=== PATIENT | female | born 1985 | race Caucasian/White ===

== ENCOUNTER 2016-09-28 19:53 | Emergency (ER) | payer BC ==
[~2016-09-28] VITALS: Ht 162.6 cm; Wt 83.4 kg
[2016-09-28 19:59] VITALS: BP 131/82; PULSE 102; RESP 20; TEMP 98.2; O2SAT 100
[2016-09-28 20:33] VITALS: BP 135/70; PULSE 108; RESP 20; O2SAT 100
[2016-09-28] MEDS ORDERED: TYLE325T PO (20:37)
[2016-09-28] MEDS ORDERED: PREN29TA PO (20:37)
[2016-09-28] MEDS ORDERED: SODIUM CHLOR 0.9% 1000 ML INJ 1,000 ML IV ONE (20:45)
--- NOTE | 2016-09-28 20:45 | PD ---
HPI Chief Complaint: Product Marketing Analyst Problem/Complaint Time Seen by Provider: 20:37 Travel History International Travel<30 days: No Contact w/Intl Traveler<30days: No Traveled to known affect area: No History of Present Illness HPI 31-year-old female presents to the emergency department by private transportation for complaint of right lower quadrant abdominal pain. Pain onset at 1 PM for approximately one hour and then resolved spontaneously. Patient took acetaminophen without relief. Patient with recurrent pain while sitting eating dinner around 7 PM. Pain was 8/10 in intensity but has not dissipated down to possibly 3/10 in intensity. Patient is 24 weeks . Patient is 3 para 2 AB 0. Previous pregnancies patient does not recall having any similar pain and were vaginal deliveries. Last menstrual period was 04/13/16 with EDC of 01/18/17. Patient is unable to identify exacerbating or alleviating factors. Patient denies any vaginal discharge or vaginal bleeding. Last ultrasound by her [facility] in [place] was 4 weeks ago and at that time she was 20 weeks with a normal ultrasound. Patient does take as needed acetaminophen and vitamins. Patient's taking no other medications. Patient denies fever chills respiratory illness symptoms has had some nausea without vomiting denies anorexia has had one episode of diarrhea no dysuria frequency urgency flank pain or hematuria. Patient's had no vaginal discharge or vaginal bleeding. Patient states symptoms began around 1 PM when she started to go for walk but because of the discomfort had to lay down and the pain dissipated on its own over time. Patient did not contact her managing physician in [place]. Due to recurrence of discomfort decided to come to the emergency room for evaluation. No prior history of abdominal surgery or similar abdominal complaint. No other family members with nausea or diarrhea. No report of melena or hematochezia. Patient traveled here by car yesterday from [place]. Patient reports she is attempting to stay well-hydrated. Patient does have cramps associated reportedly with dehydration. Patient reports she is seeing a chiropractor for left-sided broad ligament pain and that this pain is different. PFSH Past Medical History Narrative Medical Reportedly negative past medical history; Ab0: Breast augmentation; no tobacco use; nursing notes reviewed Tetanus Vaccination: Unknown Influenza Vaccination: No ?: LMP: APR 13 2016 : 3 Para: 2 Past Surgical History Other Surgery: Yes (BILATERAL BREAST AUGMENTATION) Social History Alcohol Use: No Tobacco Use: No Substance Use: No Allergies-Medications (Allergen,Severity, Reaction): Coded Allergies: Wellbutrin (Verified Allergy, Unknown, Tachycardia, 09/28/16) Reported Meds & Prescriptions Reported Meds & Active Scripts Active Reported Tylenol (Acetaminophen) 325 Mg Tab 650 Mg PO Q4H PRN Plus Iron 29-1 mg ( Vit-Iron Carbonyl) 1 Tab Tab 1 Tab PO DAILY Review of Systems Except as stated in HPI: all other systems reviewed are Neg General / Constitutional: No: Fever, Chills HENT: No: Congestion Respiratory: No: Shortness of Breath Gastrointestinal: Positive: Nausea, Diarrhea (x1), Abdominal Pain ( intermittent sharp RLQ), No: Vomiting, Hematochezia, Loss of Appetite Genitourinary: No: Urgency, Frequency, Dysuria, Hematuria, Pelvic Pain, Flank Pain, Discharge, Vaginal Bleeding Musculoskeletal: No: Myalgias, Arthralgias Skin: No Rash Neurologic: No: Weakness Psychiatric: No: Anxiety Hematologic/Lymphatic: No: Lymph Node Enlargement Physical Exam Narrative GENERAL: Well-developed well-nourished female in no acute distress no respiratory distress SKIN: Warm and dry. HEAD: Normocephalic. EYES: No scleral icterus. No injection or drainage. NECK: Supple, trachea midline. No JVD or lymphadenopathy. CARDIOVASCULAR: Regular rate and rhythm without murmurs, gallops, or rubs. RESPIRATORY: Breath sounds equal bilaterally. No accessory muscle use. GASTROINTESTINAL: Abdomen soft, non-tender to direct palpation to all quadrants , nondistended. No guarding and no rebound. Fundal height 2 finger breaths below the umbilicus. Pelvic exam: External exam no redness no induration no ulcerations; bimanual exam cervical os closed cervix long and thin. No tenderness to palpation. Scant clear mucus on exam glove no blood. Speculum exam deferred. MUSCULOSKELETAL: No cyanosis, or edema. BACK: Nontender without obvious deformity. No CVA tenderness. Data Data Last Documented VS Vital Signs Date Time Temp Pulse Resp B/P Pulse Ox O2 Delivery O2 Flow Rate FiO2 09/28/16 22:12 98 132/78 99 09/28/16 20:34 20 09/28/16 19:59 98.2 Orders Complete Blood Count With Diff (09/28/16 20:37) Basic Metabolic Panel (Bmp) (09/28/16 20:37) Urinalysis - C+S If Indicated (09/28/16 20:37) Sodium Chlor 0.9% 1000 Ml Inj (Ns 1000 M (09/28/16 20:45) Labs Laboratory Tests Test 09/28/16 09/28/16 20:42 20:45 Urine Color YELLOW Urine Turbidity CLEAR Urine pH 6.0 Urine Specific Witt 1.021 Urine Protein NEG mg/dL Urine Glucose (UA) NEG mg/dL Urine Ketones TRACE mg/dL Urine Occult Blood NEG Urine Nitrite NEG Urine Bilirubin NEG Urine Leukocyte Esterase NEG Urine RBC 0-3 /hpf Urine Squamous Epithelial 0-5 /hpf Cells Urine Amorphous Sediment FEW Urine Mucus OCC /lpf Microscopic Urinalysis Comment CULT NOT INDICATED White Blood Count 10.6 TH/MM3 Red Blood Count 3.87 MIL/MM3 Hemoglobin 11.5 GM/DL Hematocrit 34.5 % Mean Corpuscular Volume 89.0 FL Mean Corpuscular Hemoglobin 29.7 PG Mean Corpuscular Hemoglobin 33.4 % Concent Red Cell Distribution Width 13.7 % Platelet Count 223 TH/MM3 Mean Platelet Volume 7.6 FL Neutrophils (%) (Auto) 73.2 % Lymphocytes (%) (Auto) 20.8 % Monocytes (%) (Auto) 5.2 % Eosinophils (%) (Auto) 0.6 % Basophils (%) (Auto) 0.2 % Neutrophils # (Auto) 7.8 TH/MM3 Lymphocytes # (Auto) 2.2 TH/MM3 Monocytes # (Auto) 0.5 TH/MM3 Eosinophils # (Auto) 0.1 TH/MM3 Basophils # (Auto) 0.0 TH/MM3 CBC Comment DIFF FINAL Differential Comment Sodium Level 139 MEQ/L Potassium Level 3.4 MEQ/L Chloride Level 104 MEQ/L Carbon Dioxide Level 25.2 MEQ/L Anion Gap 10 MEQ/L Blood Urea Nitrogen 7 MG/DL Creatinine 0.62 MG/DL Estimat Glomerular Filtration 112 ML/MIN Rate Random Glucose 122 MG/DL Calcium Level 9.1 MG/DL MDM Medical Decision Making Medical Screen Exam Complete: Yes Emergency Medical Condition: Yes Medical Record Reviewed: Yes Interpretation(s) Vital Signs Date Time Temp Pulse Resp B/P Pulse Ox O2 Delivery O2 Flow Rate FiO2 09/28/16 20:34 20 09/28/16 20:33 108 20 135/70 100 09/28/16 19:59 98.2 102 20 131/82 100 CBC & BMP Diagram 09/28/16 20:45 Differential Diagnosis Abdominal pain, probably ligament pain, round ligament pain, appendicitis, UTI, premature labor, musculoskeletal strain, renal colic Narrative Course IV access obtained; bedside ultrasound performed by me with curvilinear probe transverse and longitudinal views show intrauterine with good heart activity approximately 140-146 bpm. Urine specimen collected; heart tones 156 by nursing. @ 9:27 PM patient pain 0/10; laughing with spouse denies any complaints at this time; aware labs w/i normal range, except minimal hypokalemia, 3.4; Patient, with spouse at bedside, is aware that she still needs monitoring which we cannot do at this facility. Patient is aware that it is recommended that she be seen at the [facility] OB ED and seen by the environmental compliance technician OB. Patient is aware her presentation has been discussed with Dr Ramos OB ED MD who agrees to see the patient for monitoring and that she can be sent by EMS transport. Patient unwilling to go to [facility] by EMS but reports aware of need for further evaluation and will go by private vehicle. Physician Communication Physician Communication discussed with Dr Ramos --send for monitoring Diagnosis Primary Impression: Abdominal pain during Qualified Code: O26.892 - Abdominal pain during , second trimester Referrals: Bargain Table Clerk 1 day Patient Instructions: General Instructions Additional Instructions: Follow up with OB Rest return to the ED for any concerns or change in condition Patricia Carlson MD Sep 28, 2016 20:45
[2016-09-28 20:48] LABS: BLOOD, URINE NEG (NEG); GLUCOSE,URINE NEG (NEG); KETONE, URINE TRACE mg/dL (NEG); NITRITE,URINE NEG (NEG)
[2016-09-28 20:59] LABS: URINE COLOR YELLOW (YELLW/STRAW)
[2016-09-28 21:00] LABS: AUTOMATED NEUTROPHIL # 7.8 TH/MM3 (1.8-7.7); BASOPHIL % 0.2 % (0.0-2.0); EOSINOPHIL # 0.1 TH/MM3 (0-0.4); EOSINOPHIL % 0.6 % (0.0-4.0); HEMATOCRIT 34.5 % (35.0-46.0); HEMO FLAGS DIFF FINAL; LYMPH % 20.8 % (9.0-44.0); LYMPHOCYTE # 2.2 TH/MM3 (1.0-4.8); MEAN CORPUSCULAR HEMOGLOBIN 29.7 PG (27.0-34.0); MEAN CORPUSCULAR HGB CONC 33.4 % (32.0-36.0); MONO % 5.2 % (0.0-8.0); NEUT % 73.2 % (16.0-70.0); PLATELET COUNT 223 TH/MM3 (150-450); RED BLOOD COUNT 3.87 MIL/MM3 (4.00-5.30); RED CELL DISTRIBUTION WIDTH 13.7 % (11.6-17.2); WHITE BLOOD COUNT 10.6 TH/MM3 (4.0-11.0)
[2016-09-28 21:00] LABS: MUCUS URINE OCC /lpf (OCC); SQUAMOUS EPITHELIAL CELL URINE 0-5 /hpf (0-5)
[2016-09-28 21:01] LABS: RBC, URINE 0-3 /hpf (0-3)
[2016-09-28 21:02] LABS: COMMENT (UR) CULT NOT INDICATED; CULTURE IF INDICATED CULT NOT INDICATED
[2016-09-28 21:11] LABS: POTASSIUM 3.4 MEQ/L (3.5-5.1)
[2016-09-28 21:14] LABS: BICARBONATE 25.2 MEQ/L (21.0-32.0)
[2016-09-28 22:12] VITALS: BP 132/78
== END 2016-09-28 22:19 | disposition home or self-care (01) ==
LOC: PHED 19:53
DX: O26.892 Other specified pregnancy related conditions, second trimester (principal); R10.9 Unspecified abdominal pain
CPT/HCPCS: 80048; 81001; 85025; J7030

== ENCOUNTER 2016-09-28 22:47 | Emergency (ER) | payer BC ==
[~2016-09-28 22:47] MED LIST: PREN29TA PO; TYLE325T PO
--- NOTE | 2016-09-28 23:35 | PD ---
HPI Chief Complaint Right lower quadrant pain Date Seen: Sep 28, 2016 Travel History International Travel<30 Days: No Contact w/Intl Traveler<30Days: No Known Affected Area: No History of Present Illness HPI This patient is 31-year-old white female 24 weeks who is referred for the [facility] for evaluation and monitoring. Patient is here on vacation from [place] has done well until today when she began having right lower quadrant pain. She presented to [facility] their workup was negative her urine was clear labs within normal limits of and her pain stopped. Because she 6 months they could not monitor so they sent her here for us to do that rule out contractions. She has had no leakage of fluid ,no bleeding Para: 2 : 4 History Obstetric History Obstetric History 2 vaginal deliveries and one early loss Social History Narrative Social History Lives in [place] is here on vacation Alcohol Use: No Tobacco Use: No Substance Abuse: No Allergies-Medications (Allergen,Severity, Reaction): Coded Allergies: Wellbutrin (Verified Allergy, Unknown, Tachycardia, 09/28/16) Home Meds Reported Medications Acetaminophen (Tylenol)325 Mg [id number] Mg PO Q4H PRN (PAIN SCALE 1 TO 5) Ref 0 09/28/16 Vit-Iron Carbonyl ( Plus Iron 29-1 mg)1 Tab Tab1 Tab PO DAILY #30 TAB Ref 0 09/28/16 Review of Systems General / Constitutional: No: Fever, Weight Gain, Chills, Other Eyes: No: Diploplia, Blurred Vision, Visual changes, Pain, Photophobia HENT: No: Headaches, Vertigo, Lightheadedness Cardiovascular: No: Irregular Rhythm, Chest Pain or Discomfort, Palpitations, Tachycardia, Syncope, Varicosities, Edema, Cyanosis Respiratory: No: Cough, Short of Breath, Other Gastrointestinal: Abdominal Pain, No: Nausea, Vomiting, Diarrhea Genitourinary: No: Decreased Urinary Output, Oliguria Musculoskeletal: No: Limited ROM, Weakness, Cramping, Edema, Pain Skin: No Rash, No Itching, No Dryness, No Lumps, No Change in Pigmentation, No Change in Nails, No Alopecia, No Lesions Neurologic: No: Weakness, Dizziness, Syncope, Focal Abnormalities, Coordination Problem, Headache, Slurred Speech, Seizures Psychiatric: No: Depression, Suicidal Ideations, Homicidal Ideation Endocrine: No: Heat Intolerance, Cold Intolerance, Polydipsia, Polyuria, Other Physical Exam Narrative GENERAL: Well-nourished, well-developed patient. SKIN: Warm and dry. HEAD: Normocephalic and atraumatic. EYES: No scleral icterus. No injection or drainage. ENT: No nasal drainage noted. Mucous membranes pink. Airway patent. NECK: Supple, trachea midline. No JVD. CARDIOVASCULAR: Regular rate and rhythm without murmurs, gallops, or rubs. RESPIRATORY: Breath sounds equal bilaterally. No accessory muscle use. BREASTS: Bilateral exam showed no masses , no retractions, no nipple discharge. ABDOMEN/GI: Abdomen soft, non-tender, bowel sounds present, no rebound, no guarding Gravid to [-24] weeks size Fundal Height: [24-] GENITOURINARY: External Genitalia: intact and normal in appearance BUS glands: [-] Cervix: [-] Dilatation: [-] Closed according the exam in [place] Effacement: [-] Station: [-] Presentation: [-] Membranes: [intact Uterine Contractions: [-none] FHT's: Category: [1-] Baseline: [-133] Reactive: [-yes] Variability: [-mod] Decels: [0-] EXTREMITIES: No cyanosis or edema. BACK: Nontender without obvious deformity. No CVA tenderness. NEUROLOGICAL: Awake and alert. Motor and sensory grossly within normal limits. Five out of 5 muscle strength in all muscle groups. Normal speech. Data Data Labs Admission CBC CMP and urinalysis all within normal limits MDM Interpretation(s) 31-year-old white female G2 for P2 at 24 weeks with care in [place] here on vacation has had right lower quadrant pain and evidence episodic over the last day or so, her pain will be severe the deep right lower quadrant and then basically go away, currently here on OB ED to be monitored rule out contractions and was seeing no contractions of no UTI and currently no pain Plan Plan to discharge home bedrest use Tylenol liberally by mouth increase her oral intake and hydration and heating pad on low or hot bath for her pain Diagnosis Diagnosis: Primary Impression: Right lower quadrant abdominal pain Disposition: 01 DISCHARGE HOME Condition: Stable Junior Ramos II, MD Sep 28, 2016 23:35
== END 2016-09-28 23:41 | disposition home or self-care (01) ==
LOC: HOBED 22:47
DX: O26.892 Other specified pregnancy related conditions, second trimester (principal); R10.31 Right lower quadrant pain; Z3A.24 24 weeks gestation of pregnancy
CPT/HCPCS: 99282